=== PATIENT | female | born 1995 | race Caucasian/White ===

== ENCOUNTER 2017-04-16 00:10 | Inpatient (IN) | payer BC ==
[2017-04-16] MEDS ORDERED: Terbutaline 1 MG/ML SDV SUBCUT PRN (00:24)
[2017-04-16] MEDS ORDERED: Misoprostol 200 MCG Tab PO PRN (00:24)
[2017-04-16] MEDS ORDERED: Water For Irrigation,Sterile 1,000 ML Container IRR PRN (00:24)
[2017-04-16] MEDS ORDERED: Lidocaine 1% 50 ML MDV INJECT PRN (00:24)
[2017-04-16] MEDS ORDERED: Methylergonovine 0.2 MG/1 ML Amp IM PRN (00:24)
[2017-04-16] MEDS ORDERED: Nalbuphine 10 MG/1 ML Vial IVPUSH PRN (00:24)
[2017-04-16] MEDS ORDERED: Butorphanol 1 MG/ML SDV IVPUSH PRN (00:24)
[2017-04-16] MEDS ORDERED: Sodium Chloride 0.9% 10 ML Syringe FLUSH PRN (00:24)
[2017-04-16] MEDS ORDERED: Carboprost Tromethamine 250 MCG/1 ML Amp IM PRN (00:24)
[2017-04-16] MEDS ORDERED: Sodium Chloride 0.9% 2.5 ML Syringe FLUSH PRN (00:24)
[2017-04-16] MEDS ORDERED: Oxytocin/0.9 % Sodium Chloride 30 UNIT/500 ML BAG IV SCH ×2 (00:30→06:00)
[2017-04-16] MEDS ORDERED: Misoprostol 25 MCG (1/4 of 100 MCG) Tab VAG SCH (00:30)
[2017-04-16] MEDS: Lactated Ringers 1,000 ML IV SCH ×4 (00:41→14:24)
[2017-04-16] MEDS ORDERED: Misoprostol 25 MCG (1/4 of 100 MCG) Tab VAG PRN (05:00)
[2017-04-16] MEDS ORDERED: Ropivacaine HCl/PF 100 ML ONE (13:13)
[2017-04-16] MEDS ORDERED: Ropivacaine 0.2% 2 MG/ML 20 ML SDV ONE (13:13)
[2017-04-16] MEDS ORDERED: fentaNYL 100 MCG/2 ML SDV ONE (13:13)
--- NOTE | 2017-04-16 13:43 | PCM.PREANE ---
Preanesthetic Assessment - Anesthesia/Transfusion/Family Hx Anesthesia History: Prior Anesthesia Without Reaction Transfusion History: No Prior Transfusion(s) - Review of Systems Other: Reports: None - Physical Assessment Height: 5 ft 1 in Weight: 86.183 kg ASA Class: 2 Mental Status: Alert & Oriented x3 Airway Class: Mallampati = 1 Dentition: Reports: Normal Dentition ROM/Head Extension: Full - Lab Values: Laboratory Last Values WBC 12.09 K/uL (4.0-11.0) H 04/16/17 00:40 RBC 4.38 M/uL (4.30-5.90) 04/16/17 00:40 Hgb 11.3 g/dL (12.0-16.0) L 04/16/17 00:40 Hct 34.4 % (36.0-46.0) L 04/16/17 00:40 MCV 78.5 fL (80.0-98.0) L 04/16/17 00:40 MCH 25.8 pg (27.0-32.0) L 04/16/17 00:40 MCHC 32.8 g/dL (31.0-37.0) 04/16/17 00:40 RDW Std Deviation 40.5 fl (28.0-62.0) 04/16/17 00:40 RDW Coeff of Johny 15 % (11.0-15.0) 04/16/17 00:40 Plt Count 230 K/uL (150-400) 04/16/17 00:40 MPV 10.50 fL (7.40-12.00) 04/16/17 00:40 Blood Type O POSITIVE 04/16/17 00:40 Antibody Screen NEGATIVE 04/16/17 00:40 - Allergies Allergies/Adverse Reactions: Allergies Allergy/AdvReac Type Severity Reaction Status Date / Time latex Allergy Hives Verified 04/16/17 00:23 - Blood Blood Available: Yes Product(s) Available: PRBC - Acknowledgements Anesthesia Type Planned: Epidural Pt an Appropriate Candidate for the Planned Anesthesia: Yes Alternatives and Risks of Anesthesia Discussed w Pt/Guardian: Yes Pt/Guardian Understands and Agrees with Anesthesia Plan: Yes PreAnesthesia Questionnaire - Past Health History Medical/Surgical History: Denies Medical/Surgical History - Past Surgical History HEENT Surgical History: Reports: Oral Surgery - SUBSTANCE USE Smoking Status *Q: Never Smoker Recreational Drug Use History: No - CURRENT (IN HOUSE) MEDS Current Meds: Current Medications Butorphanol Tartrate (Stadol) 1 mg IVPUSH Q1H PRN PRN Reason: Pain Carboprost Tromethamine (Hemabate Ds) 250 mcg IM ASDIRECTED PRN PRN Reason: Post Hemorrhage Lactated Ringer's (Ringers, Lactated) 1,000 mls @ 150 mls/hr IV ASDIRECTED JOHN Last Admin: 04/16/17 13:17 Dose: 500 mls/hr Oxytocin/Sodium Chloride (Oxytocin 30 Unit/500 Ml-Ns) 30 unit in 500 mls @ 250 mls/hr IV TITRATE JOHN Oxytocin/Sodium Chloride (Oxytocin 30 Unit/500 Ml-Ns) 30 unit in 500 mls @ 2 mls/hr IV TITRATE JOHN; 2 MUNITS/MIN PRN Reason: Protocol Last Titration: 04/16/17 13:08 Dose: 4 munits/min, 4 mls/hr Lidocaine HCl (Xylocaine 1%) 50 ml INJECT .ONCE PRN PRN Reason: Laceration repair Methylergonovine Maleate (Methergine) 0.2 mg IM ASDIRECTED PRN PRN Reason: Post Hemorrhage Misoprostol (Cytotec) 200 mcg PO .ONCE PRN PRN Reason: Post Hemorrhage Misoprostol (Cytotec) 25 mcg VAG .ONCE JOHN Last Admin: 04/16/17 04:31 Dose: 25 mcg Misoprostol (Cytotec) 25 mcg VAG Q4H PRN PRN Reason: Cervical Ripening Last Admin: 04/16/17 08:28 Dose: 25 mcg Nalbuphine HCl (Nubain) 10 mg IVPUSH Q1H PRN PRN Reason: Pain (severe 7-10) Sodium Chloride (Saline Flush) 10 ml FLUSH ASDIRECTED PRN PRN Reason: Keep Vein Open Sodium Chloride (Saline Flush) 2.5 ml FLUSH ASDIRECTED PRN PRN Reason: Keep Vein Open Sterile Water (Sterile Water For Irrigation) 1,000 ml IRR ASDIRECTED PRN PRN Reason: delivery Terbutaline Sulfate (Brethine) 0.25 mg SUBCUT ASDIRECTED PRN PRN Reason: Tacysystole Discontinued Medications Fentanyl (Sublimaze) Confirm Administered Dose 200 mcg .ROUTE .STK-MED ONE Stop: 04/16/17 13:14 Ropivacaine (Naropin 0.2%) Confirm Administered Dose 100 mls @ as directed .ROUTE .STK-MED ONE Stop: 04/16/17 13:14 Ropivacaine (Naropin 0.2%) Confirm Administered Dose 20 ml .ROUTE .STK-MED ONE Stop: 04/16/17 13:14
[2017-04-17] MEDS ORDERED: Oxytocin 10 Units/1 ML SDV IM ONE (01:30)
[2017-04-17] MEDS ORDERED: Oxytocin 10 Units/1 ML SDV ONE ×2 (01:31→01:32)
[2017-04-17] MEDS ORDERED: Ibuprofen 800 MG Tab PO PRN (02:02)
[2017-04-17] MEDS ORDERED: Acetaminophen 500 MG Tab PO PRN (02:02)
[2017-04-17] MEDS ORDERED: Bisacodyl 10 MG Supp RECTAL PRN (02:02)
[2017-04-17] MEDS ORDERED: Ibuprofen 400 MG Tab PO PRN (02:02)
[2017-04-17] MEDS ORDERED: Witch Hazel Medicated Pads 40/Jar TOP PRN (02:02)
[2017-04-17] MEDS ORDERED: Benzocaine/Menthol 20%-0.5% Spray 78 GM Cannister TOP PRN (02:02)
[2017-04-17] MEDS: Docusate Sodium 100 MG Cap PO PRN ×2 (04:02→10:33)
[2017-04-17] MEDS: Acetaminophen 500 MG Tab PO PRN (04:03)
[2017-04-17] MEDS: Lanolin 100% Cream 7 GM Tube TOP PRN ×2 (04:05→14:28)
[2017-04-17] MEDS ORDERED: Misoprostol 50 MCG (1/2 of 100 MCG) Tab RECTAL ONE (05:00)
[2017-04-17] MEDS ORDERED: Misoprostol 200 MCG Tab ONE (05:19)
--- NOTE | 2017-04-17 09:17 | OR ---
SURGEON: MIKE MILLAN DATE OF PROCEDURE: 04/17/2017 PREOPERATIVE DIAGNOSIS: A 22-year-old, G1, P0, 39 weeks 5 days, for elective induction of labor. GBS negative. POSTOPERATIVE DIAGNOSIS: Status post normal spontaneous vaginal delivery, second-degree laceration. ANESTHESIA: Epidural. ESTIMATED BLOOD LOSS: 450 mL. FINDING: A live female delivered at 1:08 a.m., scores were 7 and 9, weight was 3680 g, 3VC BRIEF HISTORY: She was a 22-year-old, , at 39 weeks 5 days, who wanted to be admitted for an elective induction of labor. She had a low risk . Induction of labor commenced with cytotec. She got Cytotec x2. After Cytotec, the patient was noted to be about 1 - 2, 30, -3 and alphonso. A CRB balloon was placed she was started on Pitocin. After CRB balloon, the patient was noted to be 4, 80, -2. she progressed normally and became fully dilated. With the patient being fully dilated, she was encouraged to push. EFM was mainly category 1 intrapartum PROCEDURE: With the patient's pushing effort, head was delivered in DAMIEN position followed subsequently by the anterior shoulder and the posterior shoulder and the body of the was delivered. The infant was placed on the mother's abdomen. Delayed cord clamping was observed. The placenta was then delivered via controlled cord traction. Cord blood was obtained. The uterus was noted to have some bleeding and some manual massage was done. About 150 mL of clot was evacuated. The perineal laceration was sutured with 2-0 Caprosyn. After the suturing, uterus was once again massaged and Pitocin 10 units was given IM. Hemostasis was noted, and the instrument and pad counts were correct x2. The patient was left with baby in stable condition. HUNTER / DIANNE /[id number]
[2017-04-18] MEDS: oxyCODONE 5 MG Tab PO PRN ×2 (02:19→10:41)
[2017-04-18] MEDS: Acetaminophen 500 MG Tab PO PRN (02:21)
--- NOTE | 2017-04-18 07:47 | PCM.PNPP ---
- General Info Date of Service: 04/18/17 Admission Dx/Problem (Free Text): 22 yo now P1 PPD1 Subjective Update: She denies any complains , ambulating , voiding and tolerating regular diet Functional Status: Reports: Pain Controlled, Tolerating Diet - Review of Systems General: Reports: No Symptoms HEENT: Reports: No Symptoms Pulmonary: Reports: No Symptoms Cardiovascular: Reports: No Symptoms Gastrointestinal: Reports: No Symptoms Genitourinary: Reports: No Symptoms Musculoskeletal: Reports: No Symptoms Skin: Reports: No Symptoms Neurological: Reports: No Symptoms Psychiatric: Reports: No Symptoms - General Info Date of Service: 04/18/17 - Patient Data Vital Signs - Most Recent: Last Vital Signs Temp 36.3 C 04/17/17 20:53 Pulse 86 04/17/17 20:53 Resp 20 04/17/17 20:53 BP 130/75 04/17/17 20:53 Pulse Ox 97 04/17/17 20:53 Weight - Most Recent: 86.183 kg Lab Results - Last 24 Hours: Laboratory Results - last 24 hr 04/18/17 Range/Units 05:46 Hgb 9.2 L (12.0-16.0) g/dL Hct 29.3 L (36.0-46.0) % Med Orders - Current: Current Medications Acetaminophen (Tylenol Extra Strength) 500 mg PO Q4H PRN PRN Reason: Pain Acetaminophen (Tylenol Extra Strength) 1,000 mg PO Q4H PRN PRN Reason: Pain Last Admin: 04/18/17 02:21 Dose: 1,000 mg Benzocaine/Menthol (Dermoplast Pain Relief 20%-0.5% [place]) 78 gm TOP ASDIRECTED PRN PRN Reason: Perineal Comfort Measure Last Admin: 04/17/17 04:04 Dose: 1 tub Bisacodyl (Dulcolax) 10 mg RECTAL .ONCE PRN PRN Reason: Constipation Butorphanol Tartrate (Stadol) 1 mg IVPUSH Q1H PRN PRN Reason: Pain Carboprost Tromethamine (Hemabate Ds) 250 mcg IM ASDIRECTED PRN PRN Reason: Post Hemorrhage Docusate Sodium (Colace) 100 mg PO BID PRN PRN Reason: Constipation Last Admin: 04/17/17 10:33 Dose: 100 mg Emollient Ointment (Lansinoh Hpa) 0 gm TOP ASDIRECTED PRN PRN Reason: Sore Nipples Last Admin: 04/17/17 14:28 Dose: 7 tube Lactated Ringer's (Ringers, Lactated) 1,000 mls @ 150 mls/hr IV ASDIRECTED JOHN Last Admin: 04/16/17 14:24 Dose: 150 mls/hr Oxytocin/Sodium Chloride (Oxytocin 30 Unit/500 Ml-Ns) 30 unit in 500 mls @ 250 mls/hr IV TITRATE JOHN Oxytocin/Sodium Chloride (Oxytocin 30 Unit/500 Ml-Ns) 30 unit in 500 mls @ 2 mls/hr IV TITRATE JOHN; 2 MUNITS/MIN PRN Reason: Protocol Last Titration: 04/16/17 17:40 Dose: 2 munits/min, 2 mls/hr Ibuprofen (Motrin) 400 mg PO Q4H PRN PRN Reason: Pain Ibuprofen (Motrin) 800 mg PO Q6H PRN PRN Reason: Pain Last Admin: 04/17/17 10:34 Dose: 800 mg Lidocaine HCl (Xylocaine 1%) 50 ml INJECT .ONCE PRN PRN Reason: Laceration repair Last Admin: 04/17/17 01:21 Dose: 50 ml Methylergonovine Maleate (Methergine) 0.2 mg IM ASDIRECTED PRN PRN Reason: Post Hemorrhage Misoprostol (Cytotec) 200 mcg PO .ONCE PRN PRN Reason: Post Hemorrhage Misoprostol (Cytotec) 25 mcg VAG .ONCE JOHN Last Admin: 04/16/17 04:31 Dose: 25 mcg Misoprostol (Cytotec) 25 mcg VAG Q4H PRN PRN Reason: Cervical Ripening Last Admin: 04/16/17 08:28 Dose: 25 mcg Nalbuphine HCl (Nubain) 10 mg IVPUSH Q1H PRN PRN Reason: Pain (severe 7-10) Oxycodone HCl (Oxycodone) 5 mg PO Q2H PRN PRN Reason: Pain Last Admin: 04/18/17 02:19 Dose: 5 mg Sodium Chloride (Saline Flush) 10 ml FLUSH ASDIRECTED PRN PRN Reason: Keep Vein Open Sodium Chloride (Saline Flush) 2.5 ml FLUSH ASDIRECTED PRN PRN Reason: Keep Vein Open Sterile Water (Sterile Water For Irrigation) 1,000 ml IRR ASDIRECTED PRN PRN Reason: delivery Last Admin: 04/17/17 01:21 Dose: 1,000 ml Terbutaline Sulfate (Brethine) 0.25 mg SUBCUT ASDIRECTED PRN PRN Reason: Tacysystole Witch Mitzi (Tucks) 1 pad TOP ASDIRECTED PRN PRN Reason: comfort care Last Admin: 04/17/17 04:04 Dose: 1 tub Discontinued Medications Fentanyl (Sublimaze) Confirm Administered Dose 200 mcg .ROUTE .STK-MED ONE Stop: 04/16/17 13:14 Last Admin: 04/17/17 11:44 Dose: Not Given Ropivacaine (Naropin 0.2%) Confirm Administered Dose 100 mls @ as directed .ROUTE .STK-MED ONE Stop: 04/16/17 13:14 Last Admin: 04/17/17 11:44 Dose: Not Given Misoprostol (Cytotec) Confirm Administered Dose 200 mcg .ROUTE .STK-MED ONE Stop: 04/17/17 05:20 Last Admin: 04/17/17 05:26 Dose: 800 mcg Misoprostol (Cytotec) 800 mcg RECTAL ONETIME ONE Stop: 04/17/17 05:01 Last Admin: 04/17/17 11:45 Dose: Not Given Oxytocin (Pitocin) Confirm Administered Dose 10 unit .ROUTE .STK-MED ONE Stop: 04/17/17 01:32 Last Admin: 04/17/17 11:44 Dose: Not Given Oxytocin (Pitocin) Confirm Administered Dose 10 unit .ROUTE .STK-MED ONE Stop: 04/17/17 01:33 Last Admin: 04/17/17 11:44 Dose: Not Given Oxytocin (Pitocin) 10 unit IM ONETIME ONE Stop: 04/17/17 01:31 Last Admin: 04/17/17 04:06 Dose: 10 unit Ropivacaine (Naropin 0.2%) Confirm Administered Dose 20 ml .ROUTE .STK-MED ONE Stop: 04/16/17 13:14 Last Admin: 04/17/17 11:44 Dose: Not Given - Interaction Support Person: Other (see below) - Recovery Exam Fundal Tone: Firm Fundal Level: At Umbilicus Fundal Placement: Midline Lochia Amount: Small Lochia Color: Rubra/Red Perineum Description: Intact, Minimal Bruising/Swelling Other Perinuem Description: 2nd degree laceration Episiotomy/Laceration: Approximated Bladder Status: Voiding Urinary Elimination: Voided - Exam General: Alert, Oriented HEENT: Pupils Equal Lungs: Clear to Auscultation Cardiovascular: Regular Rate, Regular Rhythm GI/Abdominal Exam: Normal Bowel Sounds Extremities: Normal Inspection Skin: Warm Psy/Mental Status: Alert, Normal Affect - Problem List & Annotations (1) Vaginal delivery SNOMED Code(s): 308484168 Code(s): O80 - ENCOUNTER FOR FULL-TERM UNCOMPLICATED DELIVERY Status: Acute Current Visit: Yes - Problem List Review Problem List Initiated/Reviewed/Updated: Yes - Assessment Assessment:: 22yo P1 s/p PPD 1, Stable , Minimal lochia - Plan Plan:: Discharge home today If fever > 101 call [facility] If heavy vaginal bleeding > 1 pad in 1 hr call [facility] Pain control as needed Continue PNV and Iron
== END 2017-04-18 10:50 | disposition home or self-care (01) | DRG 560 ==
LOC: MW.OBCHECK 00:10 → MW.OB 00:12 → MW.OBCHECK 00:24 → MW.OB 00:24 → OBSVTOIN 04-17 01:08 → MW.OB 04-17 11:20
PROVIDERS: ADMIT Obstetrics & Gynecology; ATTEND Obstetrics & Gynecology
PROC: 10E0XZZ Delivery of Products of Conception, External Approach (ICD-10-PCS; principal; 2017-04-17)
PROC: 3E0P7VZ Introduction of Hormone into Female Reproductive, Via Natural or Artificial Opening (ICD-10-PCS; 2017-04-17)
PROC: 0KQM0ZZ Repair Perineum Muscle, Open Approach (ICD-10-PCS; 2017-04-17)
DX: O70.1 Second degree perineal laceration during delivery (principal); Z3A.39 39 weeks gestation of pregnancy; Z37.0 Single live birth
CPT/HCPCS: 36415; 51702; 59025; 59200; 59409; 85014; 85018; 85027; 86850; 86900; 86901; A9270-GY; J2590; J7120